=== PATIENT | female | born 1965 | race African-American/Black ===

== ENCOUNTER 2017-09-24 14:37 | Inpatient (IN) | payer MEDICAID ==
[~2017-09-24] VITALS: Ht 170.2 cm; Wt 61.2 kg
[~2017-09-24 14:37] MED LIST: NKM; PERCOCET 5-3251 EACH ORAL
[2017-09-24 15:00] VITALS: BP 140/91
[2017-09-24] MEDS ORDERED: Nitroglycerin 2% oint pkt TOPIC ONE (15:15)
--- NOTE | 2017-09-24 15:17 | Emergency Room Report ---
History of Present Illness General Chief Complaint: Generalized Weakness Source: Patient Present Illness HPI The patient presents with worsening exertional chest pain. She's also under stress at this time. She states it's pressure radiating to her left arm. It's worsened when she's walking and improved when she is at rest. She took B and C powder which has aspirin in it today and is slightly better at this time. She denies diaphoresis nausea or vomiting. She also has crapping in her legs. She states she has risk factors of family history of heart disease, she smokes and has hypertension. She is being followed by a key account representative but has never had a treadmill or other evaluation for acute coronary syndrome. She denies fevers, chills, productive cough, change in bowels, dysuria or headache. Allergies: Coded Allergies: No Known Allergies (Verified Allergy, Unknown, 07/14/07) Patient History Past Medical History: see triage record Social History: Reports: smoking Social History Narrative at home Last Menstrual Period: na Reviewed Nursing Documentation: PMH: Agreed; PSxH: Agreed Nursing Documentation-PMH Past Medical History: No History, Except For Hx Hypertension: Yes Review of Systems All Other Systems: negative except mentioned in HPI Physical Exam Vital Signs Date Time Temp Pulse Resp B/P (MAP) Pulse Ox O2 Delivery O2 Flow Rate FiO2 09/24/17 14:45 98.9 100 18 140/91 98 Room Air 99.0 Sp02 EP Interpretation: reviewed, normal General Appearance: well appearing, no apparent distress, GCS 15 Head: normocephalic Eyes: bilateral eye normal inspection, bilateral eye PERRL ENT: moist mucus membranes Neck: supple Respiratory: lungs clear, normal breath sounds Cardiovascular #1: regular rate, rhythm, no edema Cardiovascular #2: 2+ radial (R) Gastrointestinal: normal inspection, normal bowel sounds, non tender, no mass, non-distended, scaphoid Musculoskeletal: back normal, gait/station normal, normal range of motion, no calf tenderness Neurologic: alert, oriented x3, grossly normal Psychiatric: mood/affect normal Skin: normal inspection, warm/dry Medical Decision Making Diagnostic Impression: Primary Impression: Chest pain Qualified Codes: R07.9 - Chest pain, unspecified ER Course The patient presents with exertional chest pain. She has cardiac risk factors. Differential includes acute myocardial infarction, unstable angina, angina, acute coronary syndrome, costochondritis, anxiety amongst others. She needs to be evaluated with EKG, chest x-ray and labs including troponin. She took aspirin already today and we will be giving her nitro bid. EKG without injury. Chest x-ray unremarkable. Labs with negative troponin. Patient is improved with nitro-bid. Pain is now 4/10. The patient is admitted to telemetry for repeated troponins and cardiac evaluation. Laboratory Tests Test 09/24/17 15:20 09/24/17 15:30 Urine Color Pale yellow Urine Appearance Slightly cloudy Urine pH 5 (4.5-8.0) Urine Specific [place] 1.005 (1.005-1.035) Urine Protein Negative (NEGATIVE) Urine Glucose (UA) Negative (NEGATIVE) Urine Ketones Negative (NEGATIVE) Urine Occult Blood Negative (NEGATIVE) Urine Nitrite Negative (NEGATIVE) Urine Bilirubin Negative (NEGATIVE) Urine Urobilinogen Normal MG/DL (0.0-1.0) Urine Leukocyte Esterase Negative (NEGATIVE) Urine RBC 0 /HPF (0 - 2) Urine WBC 0-2 /HPF (0 - 2) Urine Squamous Epithelial Cells Moderate /LPF (NONE/OCC) H Urine Bacteria Occasional /HPF (NONE) Urine Opiates Screen Negative (NEGATIVE) Urine Barbiturates Screen Negative (NEGATIVE) Phencyclidine (PCP) Screen Negative (NEGATIVE) Urine Amphetamines Screen Negative (NEGATIVE) Urine Benzodiazepines Screen Negative (NEGATIVE) Urine Cocaine Screen Negative (NEGATIVE) Urine Marijuana (THC) Screen Negative (NEGATIVE) White Blood Count 8.7 K/UL (4.8-10.8) Red Blood Count 4.04 M/UL (4.20-5.40) L Hemoglobin 11.3 G/DL (12.0-16.0) L Hematocrit 34.4 % (37.0-47.0) L Mean Corpuscular Volume 85 FL (80-99) Mean Corpuscular Hemoglobin 28.0 PG (27.0-31.0) Mean Corpuscular Hemoglobin Concent 32.9 G/DL (32.0-36.0) Red Cell Distribution Width 14.6 % (11.6-14.8) Platelet Count 268 K/UL (150-450) Mean Platelet Volume 6.6 FL (6.5-10.1) Neutrophils (%) (Auto) 50.7 % (45.0-75.0) Lymphocytes (%) (Auto) 36.9 % (20.0-45.0) Monocytes (%) (Auto) 9.6 % (1.0-10.0) Eosinophils (%) (Auto) 0.8 % (0.0-3.0) Basophils (%) (Auto) 1.9 % (0.0-2.0) Prothrombin Time 10.4 SEC (9.30-11.50) Prothrombin Time INR 1.0 (0.9-1.1) PTT 26 SEC (23-33) Sodium Level 137 MMOL/L (136-145) Potassium Level 4.2 MMOL/L (3.5-5.1) Chloride Level 102 MMOL/L (98-107) Carbon Dioxide Level 21 MMOL/L (21-32) Anion Gap 14 mmol/L (5-15) Blood Urea Nitrogen 5 mg/dL (7-18) L Creatinine 0.6 MG/DL (0.55-1.30) Estimate Glomerular Filtration Rate > 60 mL/min (>60) Glucose Level 91 MG/DL (74-106) Calcium Level 9.2 MG/DL (8.5-10.1) Total Bilirubin 0.2 MG/DL (0.2-1.0) Aspartate Amino Transferase (AST) 69 U/L (15-37) H Alanine Aminotransferase (ALT) 43 U/L (12-78) Alkaline Phosphatase 65 U/L (46-116) Total Creatine Kinase 153 U/L (26-308) Troponin I 0.001 ng/mL (0.000-0.056) Pro-B-Type Natriuretic Peptide 52 pg/mL (0-125) Total Protein 8.2 G/DL (6.4-8.2) Albumin 3.6 G/DL (3.4-5.0) Globulin 4.6 g/dL Albumin/Globulin Ratio 0.8 (1.0-2.7) L EKG Diagnostic Results Rate: normal Rhythm: NSR ST Segments: no acute changes Rhythm Strip Diag. Results EP Interpretation: yes Rhythm: NSR, no PVC's, no ectopy Chest X-Ray Diagnostic Results Chest X-Ray Diagnostic Results : Chest X-Ray Ordered: Yes # of Views/Limited/Complete: 1 View Indication: Chest Pain EP Interpretation: Yes Interpretation: no consolidation, no effusion, no pneumothorax, other - globular heart Electronically Signed by: Electronically signed by Efren Ron MD Status: improved Disposition: ADMITTED INPATIENT Condition: Serious Efren Ron M.D. Sep 24, 2017 15:17
[2017-09-24 15:47] LABS: APPEARANCE,URINE SLIGHTLY CLOUDY; BILIRUBIN, URINE NEGATIVE (NEGATIVE); COLOR,URINE PALE YELLOW; GLUCOSE, URINE (UA) NEGATIVE (NEGATIVE); KETONES,URINE NEGATIVE (NEGATIVE); LEUKOCYTE ESTERASE ,URINE NEGATIVE (NEGATIVE); NITRITE,URINE NEGATIVE (NEGATIVE); PH,URINE 5 (4.5-8.0); PROTEIN,URINE NEGATIVE (NEGATIVE); UROBILINOGEN,URINE NORMAL MG/DL (0.0-1.0)
[2017-09-24 15:53] VITALS: BP 130/81
[2017-09-24 16:03] LABS: BASOPHILS % (AUTO) 1.9 % (0.0-2.0); EOSINOPHILS % (AUTO) 0.8 % (0.0-3.0); HEMATOCRIT 34.4 % (37.0-47.0); HEMOGLOBIN 11.3 G/DL (12.0-16.0); LYMPHOCYTES % (AUTO) 36.9 % (20.0-45.0); MEAN CORPUSCULAR VOLUME 85 FL (80-99); MONOCYTES % (AUTO) 9.6 % (1.0-10.0); NEUTROPHILS % (AUTO) 50.7 % (45.0-75.0); PLATELET COUNT 268 K/UL (150-450); RED BLOOD COUNT 4.04 M/UL (4.20-5.40); RED CELL DISTRIBUTION WIDTH 14.6 % (11.6-14.8); WHITE BLOOD COUNT 8.7 K/UL (4.8-10.8)
[2017-09-24 16:18] LABS: ANION GAP 14 mmol/L (5-15); BLOOD UREA NITROGEN 5 mg/dL (7-18); CALCIUM 9.2 MG/DL (8.5-10.1); CARBON DIOXIDE 21 MMOL/L (21-32); CHLORIDE 102 MMOL/L (98-107); CREATININE 0.6 MG/DL (0.55-1.30); POTASSIUM 4.2 MMOL/L (3.5-5.1); SODIUM 137 MMOL/L (136-145)
[2017-09-24 16:28] LABS: ALANINE AMINOTRANSFERASE 43 U/L (12-78); ALBUMIN 3.6 G/DL (3.4-5.0); ALBUMIN/GLOBULIN RATIO 0.8 (1.0-2.7); ALKALINE PHOSPHATASE 65 U/L (46-116); ASPARTATE AMINO TRANSFERASE 69 U/L (15-37); BILIRUBIN,TOTAL 0.2 MG/DL (0.2-1.0); CREATINE KINASE 153 U/L (26-308)
[2017-09-24 16:53] VITALS: BP 107/69
[2017-09-24] MEDS ORDERED: NKM (17:12)
[2017-09-24 18:00] VITALS: BP 132/88
[2017-09-24] MEDS ORDERED: Nitroglycerin Subl 0.4mg tab SL PRN (18:00)
[2017-09-24] MEDS ORDERED: BC POWDER PACK1 EAC1 PO (18:38)
[2017-09-24] MEDS ORDERED: ARTIFICIAL TEAR15 ML BOTH EYES (18:38)
--- NOTE | 2017-09-24 19:45 | History and Physical Report ---
DATE OF ADMISSION: 09/24/2017 CHIEF COMPLAINT: Chest pain. HISTORY OF PRESENT ILLNESS: The patient is a pleasant female. She has history of hypertensive heart disease. She has been off medications for several months. She presented here with complaints of chest pain that was exertional. She describes pain as pressure-like usually associated with exercise, stress, exertion. It is resolved with rest. She denies any nonexertional chest pain or chest pain at rest. On evaluation in emergency room, the troponin was negative. EKG was unremarkable. In light of her significant history, she was admitted for further evaluation and care. She does have a family history father of a heart attack in his mid 50s. She is a smoker. PAST MEDICAL HISTORY: As above. PAST SURGICAL HISTORY: None. CURRENT MEDICATIONS: None. FAMILY HISTORY: Significant for heart disease. SOCIAL HISTORY: Negative for alcohol or drugs. The patient is a prior smoker, but quit. REVIEW OF SYSTEMS: Negative except for chest pain. PHYSICAL EXAMINATION: VITAL SIGNS: Temperature 99, pulse 91, respiratory rate 18, blood pressure 107/69. GENERAL: The patient is well-developed and well-nourished female, in no apparent distress. HEART: Regular rate and rhythm. LUNGS: Clear. ABDOMEN: Soft, nontender, and nondistended. EXTREMITIES: No clubbing, cyanosis, or edema. LABORATORY DATA: White count 8, hemoglobin 11, hematocrit 34. Sodium 137. Troponin is 0.001. Coags negative Urine was clear. Tox screen was negative. ASSESSMENT: This is a pleasant female admitted with complaints atypical angina: 1. Angina. 2. Hypertension. PLAN: Serial enzymes and EKGs. Check troponin in the morning. Check lipid panel and thyroid function tests. Stress test in the morning. Antiplatelet therapy. As needed nitrates. Jefe Yoder M.D. DR: Naz JOB#: [id number] CC:
[2017-09-24 20:00] VITALS: BP 117/74
[2017-09-24] MEDS: Heparin 5000 units/ml inj SUBQ SCH (21:00)
[2017-09-25] VITALS: BP 122/68
[2017-09-25 04:00] VITALS: BP 111/79
[2017-09-25 08:00] VITALS: BP 116/73
[2017-09-25] MEDS: Heparin 5000 units/ml inj SUBQ SCH (08:10)
[2017-09-25 09:34] LABS: CHOLESTEROL 181 MG/DL (< 200); HDL CHOLESTEROL 47 MG/DL (40-60); TRIGLYCERIDES 61 MG/DL (30-150)
[2017-09-25 12:00] VITALS: BP 120/79
--- NOTE | 2017-09-25 12:02 | Diagnostic Imaging Report ---
Indication: Chest pain Technique: One view of the chest Comparison: 07/15/2007 Findings: Lungs and pleural spaces are clear. Heart size upper limits of normal. The aorta is elongated. Impression: No acute process
--- NOTE | 2017-09-25 13:33 | Cardiology Report ---
APPROVED REPORT EKG Measurement Heart [id number] ME [id number] [id number] Normal sinus rhythm Left axis deviation Abnormal ECG
--- NOTE | 2017-09-25 15:58 | Diagnostic Imaging Report ---
Indications: Chest pain Technique: Single day single isotope protocol utilized. Initially, resting images obtained using IV administration 10.5 millicuries 99M technetium Myoview. Subsequently, patient underwent treadmill stress testing. See cardiology report for details. During adenosine infusion, IV administration 31.9 mCi 99 M technetium Myoview. SPECT and planar images obtained. SPECT images gated to 8 phases of the cardiac cycle were also obtained, and reformatted into cine images for evaluation of ejection fraction. Comparison: none Findings: Per cardiology report, patient experienced fatigue. Patient achieved a peak heart rate of 142 bpm, equaling the targeted heart rate of 142 bpm. Per cardiology report, resting EKG demonstrates normal sinus rhythm. Presence of absence of EKG changes during stress is not recorded on the available cardiology report. Imaging demonstrates equivocal slight decreased activity in the apex which is unchanged on the resting images. No reversible post stress perfusion defects. Normal cardiac chamber size. Calculated post stress ejection fraction 76%. No focal wall motion abnormality Impression: Nonischemic clinical response to pharmacologic stress, per cardiology report Nonischemic electrocardiographic response to pharmacologic stress, per cardiology report No imaging findings to suggest ischemia, at level of stress achieved. Slight fixed decreased activity in the apex could represent a small infarct, but is most likely artifactual due to overlying soft tissue attenuation Calculated post stress ejection fraction 76%
[2017-09-25 16:00] VITALS: BP 135/78
--- NOTE | 2017-09-25 18:15 | Cardiology Report ---
APPROVED REPORT EXAM: Two-dimensional and M-mode echocardiogram with Doppler and color Doppler. INDICATION Angina pectoris M-Mode DIMENSIONS IVSd1.7 (0.7-1.1cm)Left Atrium (MM)3.6 (1.6-4.0cm) LVDd4.9 (3.5-5.6cm)Aortic Root3.5 (2.0-3.7cm) PWd1.2 (0.7-1.1cm)Aortic Cusp Exc.1.8 (1.5-2.0cm) LVDs3.3 (2.5-4.0cm) PWs1.2 cm Technically difficult study due to poor apical windows. Normal left ventricular chamber size, systolic function and wall motion to extent visualized. Left ventricular ejection fraction estimated to be 60 %. Study quality precludes accurate assessment of regional wall motion. No evidence of left ventricular hypertrophy by 2-D. No evidence of pericardial effusion. All other cardiac chamber sizes are within normal limits. Mild focal aortic valve sclerosis with adequate cusp excursion. Mildly thickened mitral valve leaflets with normal excursion. Mitral annulus and aortic root calcification. Pulmonic valve not well visualized. Normal tricuspid valve structure. IVC at normal size with physiologic collapse. A color flow and spectral Doppler study was performed and revealed: No aortic regurgitation. No mitral regurgitation. Mitral inflow indicates normal left ventricular diastolic function. Trace tricuspid regurgitation. Tricuspid systolic velocities suggests peak right ventricular systolic pressure of 10 mmHg. No pulmonic regurgitation present.
--- NOTE | 2017-09-27 09:17 | Discharge Summary ---
Discharge Summary Discharge Summary _ DATE OF ADMISSION: 09/24/2017 DATE OF DISCHARGE: 09/25/2017 REASON FOR ADMISSION: 51 years old female with past medical history significant for hypertension, presented to emergency department with complaint of chest pain. She reported chest pain to be pressure-like, associated with stress ,exercise and resolved with rest. Patient had been off anti-hypertensive medications for several months. Upon evaluation blood pressure was slightly elevated 140/91. Troponin was negative. EKG revealed normal sinus rhythm, no acute ischemic changes. Chest x-ray revealed no acute cardiopulmonary pathology. Patient had family history of father , who of heart attack at the mid 50s. Patient was a current smoker. Due to the risk factors, patient admitted for workup for chest pain to rule out acute coronary syndrome HOSPITAL COURSE: Patient admitted to telemetry floor. Serial troponin were negative. EKG revealed no acute ischemic changes. Patient subsequently ruled out for acute IL. Echocardiogram revealed preserved ejection fraction of 60%. No evidence of pericardial effusion. Right ventricular systolic pressure of 10. No mitral regurgitation. Patient subsequently undergone nuclear medicine stress test which was nonischemic. No imaging findings to suggest ischemia level af stress achieved. Calculated poststress ejection fraction 76%. Lipid panel revealed elevated LDL- 122, stable triglycerides and total cholesterol. Patient was educated on therapeutic lifestyle changes and advised to repeat lipid panel in 3 months. If LDL still elevated, recommended to start statin- per PMD discretion. TSH was within normal limits. Pro BNP 52. Patient was on antiplatelet therapy with aspirin. Nitroglycerin provided as needed. Pain resolved. DVT prophylaxis provided .Blood pressure stabilized. At this point no need for antihypertensive medication, however patient was urged to follow-up with the primary care provider to closely monitor blood pressure. She was counseled on smoking cessation. Patient was stable for discharge. Due to rapid and expected improvement in patient condition, patient was discharged in one day. FINAL DIAGNOSES: Angina Hypertension DISCHARGE MEDICATIONS: See Medication Reconciliation list. DISCHARGE INSTRUCTIONS: Patient was discharged home. Follow up with primary care provider in one week. I have been assigned to dictate discharge summary for this account. I was not involved in the patient's management. Domi Ramires NP Sep 27, 2017 09:17
== END 2017-09-25 17:13 | disposition home or self-care (01) | DRG 198 ==
LOC: EMR 16:45 → 2E 17:00 → EDBEDREQ 17:04
DX: I20.9 Angina pectoris, unspecified (principal); I11.9 Hypertensive heart disease without heart failure; F17.200 Nicotine dependence, unspecified, uncomplicated; Z82.49 Family history of ischemic heart disease and other diseases of the circulatory system
CPT/HCPCS: 36415; 71045; 78452; 80053; 80061; 80307; 81003; 82550; 83880; 84443; 84484; 85025; 85610; 85730; 93005; 93017; 93306; 99285

== ENCOUNTER 2018-08-26 18:00 | Emergency (ER) | payer MEDICAID ==
[~2018-08-26] VITALS: Ht 170.2 cm; Wt 60.3 kg
[~2018-08-26 18:00] MED LIST changes: +ARTIFICIAL TEAR15 ML BOTH EYES; +BC POWDER PACK1 EAC1 PO
--- NOTE | 2018-08-26 18:16 | NUR ---
ED Nurse Note: Patient came in from home ambulatory with c/o plugged ear on the Left ear about a month ago , draining sinuses and right facial discomfort due to dental problem for about a year now since 2017. VSS. GAUTHIER seen and examined the patient. WIll continue to monitor.
--- NOTE | 2018-08-26 18:27 | NUR ---
ED Nurse Note: Urine collected and sent to lab.
[2018-08-26 18:33] VITALS: BP 127/69
[2018-08-26 18:44] LABS: APPEARANCE,URINE CLEAR; BILIRUBIN, URINE NEGATIVE (NEGATIVE); COLOR,URINE PALE YELLOW; GLUCOSE, URINE (UA) NEGATIVE (NEGATIVE); KETONES,URINE NEGATIVE (NEGATIVE); LEUKOCYTE ESTERASE ,URINE NEGATIVE (NEGATIVE); NITRITE,URINE NEGATIVE (NEGATIVE); PH,URINE 5 (4.5-8.0); PROTEIN,URINE NEGATIVE (NEGATIVE); UROBILINOGEN,URINE NORMAL MG/DL (0.0-1.0)
--- NOTE | 2018-08-26 18:44 | NUR ---
ED Nurse Note: Pt refused CAT scan, ERMD aware and discontinued the order.
[2018-08-26] MEDS ORDERED: ACETAMINOPHEN-1 EAC1 ORAL (18:57)
[2018-08-26] MEDS ORDERED: AUGMENTIN 875-1 EAC1 ORAL (18:57)
[2018-08-26 19:14] VITALS: BP 111/74
--- NOTE | 2018-08-26 19:15 | NUR ---
ER DISCHARGE NOTE: Patient is cleared to be discharged per ERMD, pt is aox4, on room air, with stable vital signs. pt was given dc and prescription instructions, pt was able to verbalize understanding, pt id band and iv site removed without complications. pt is able to ambulate with steady gait. pt took all belongings. VSS. Drainage on left ear done. No acute distress.
[2018-08-26 19:22] VITALS: BP 111/74
--- NOTE | 2018-08-26 22:32 | Emergency Room Report ---
History of Present Illness General Chief Complaint: Headache Present Illness HPI Patient is a 52-year-old female who presented after increased headache and congestion. Patient reports of increased right-sided facial pain. Patient reports having previous procedure to her right side of her face. Patient had no loss of consciousness. Patient had gradual onset of symptoms. She had previously been told that she needed dental extraction to the right side of her face. She denies any fever. She had previous abscess drainage. Allergies: Coded Allergies: No Known Allergies (Verified Allergy, Unknown, 07/14/07) Patient History Past Medical History: see triage record Last Menstrual Period: menopause Now: No Reviewed Nursing Documentation: PMH: Agreed; PSxH: Agreed Nursing Documentation-PMH Hx Hypertension: Yes Review of Systems All Other Systems: negative except mentioned in HPI Physical Exam Vital Signs Date Time Temp Pulse Resp B/P (MAP) Pulse Ox O2 Delivery O2 Flow Rate FiO2 08/26/18 18:06 98.2 89 16 95 Room Air 08/26/18 18:33 127/69 Sp02 EP Interpretation: reviewed, normal General Appearance: normal inspection, well appearing, no apparent distress, alert, GCS 15 Head: atraumatic ENT: normal ENT inspection, hearing grossly normal, normal voice, other - poor dentition Neck: normal inspection, full range of motion, supple, no bony tend Respiratory: normal inspection, lungs clear, normal breath sounds, no respiratory distress, no retraction, no wheezing Cardiovascular #1: regular rate, rhythm, no edema Gastrointestinal: normal inspection, normal bowel sounds, non tender, soft, no guarding, no hernia Genitourinary: no CVA tenderness Musculoskeletal: normal inspection, back normal, normal range of motion Neurologic: normal inspection, alert, responsive, speech normal Psychiatric: normal inspection, judgement/insight normal, mood/affect normal Skin: normal inspection, normal color, no rash Medical Decision Making Diagnostic Impression: Primary Impression: Chronic dental infection Additional Impression: Impacted cerumen of left ear ER Course She presented for dental pain and headache. Differential diagnosis include was not limited to meningitis, dental fracture abscess among others. CT imaging was the head was ordered to patient's severe headache. CT head read by radiology showed no evidence of acute intracranial hemorrhage or sinus infection. Patient was noted to have some dental disease. patient appears stable for outpatient management. She was given prescription for oral antibiotics. She was advised to follow-up with dentist for further evaluation and treatment. Labs Test 08/26/18 18:22 Urine Color Pale yellow Urine Appearance Clear Urine pH 5 (4.5-8.0) Urine Specific [place] 1.010 (1.005-1.035) Urine Protein Negative (NEGATIVE) Urine Glucose (UA) Negative (NEGATIVE) Urine Ketones Negative (NEGATIVE) Urine Blood Negative (NEGATIVE) Urine Nitrite Negative (NEGATIVE) Urine Bilirubin Negative (NEGATIVE) Urine Urobilinogen Normal MG/DL (0.0-1.0) Urine Leukocyte Esterase Negative (NEGATIVE) Last Vital Signs Date Time Temp Pulse Resp B/P (MAP) Pulse Ox O2 Delivery O2 Flow Rate FiO2 08/26/18 19:22 97.2 68 16 111/74 96 08/26/18 19:14 Room Air Status: improved Disposition: HOME, SELF-CARE Condition: Improved Scripts Amoxicillin/Potassium Clav 875-125* (AUGMENTIN 875-125 TABLET*) 1 Each Tablet 1 TAB ORAL TWICE A DAY, #28 TAB Prov: Bernard Verdin MD 08/26/18 Acetaminophen With Codeine (T#3) (TYLENOL #3 TAB*) Y Tab 1 TAB ORAL Q6HR PRN for For Pain, #16 TAB Prov: Bernard Verdin MD 08/26/18 Referrals: NOT CHOSEN [facility]/,REFERRING (PCP) Patient Instructions: [facility] Bernard Verdin MD August 26, 2018 22:32
== END 2018-08-26 19:30 | disposition home or self-care (01) ==
LOC: EMR 19:14
DX: K04.7 Periapical abscess without sinus (principal); H61.22 Impacted cerumen, left ear; I10 Essential (primary) hypertension
CPT/HCPCS: 81003; 99282

== ENCOUNTER 2019-02-19 11:11 | Emergency (ER) | payer SELFPAY ==
[~2019-02-19] VITALS: Ht 170.2 cm; Wt 61.2 kg
[~2019-02-19 11:11] MED LIST changes: +ACETAMINOPHEN-1 EAC1 ORAL; +AUGMENTIN 875-1 EAC1 ORAL
[2019-02-19] MEDS ORDERED: BP med (11:21)
[2019-02-19 11:32] VITALS: BP 104/70
--- NOTE | 2019-02-19 11:34 | NUR ---
ED Nurse Note: ERMD at bedside for assessment.
--- NOTE | 2019-02-19 11:35 | NUR ---
ED Nurse Note: Pt walked into ER c/o left lung pain 01/24 upon exertion. Pt aao x4. No acute distress noted. Patient ambulatory. Addendum: 02/19/19 at 1142 by IOROPEL ED Nurse Note: Lung sounds auscultated bilaterally, all lobes clear and no wheezing noted.
--- NOTE | 2019-02-19 11:52 | NUR ---
ED Nurse Note: X-ray at bedside.
[2019-02-19] MEDS ORDERED: MEDROL DOSEPAK4 MG ORAL (12:05)
--- NOTE | 2019-02-19 12:19 | NUR ---
ED Nurse Note: pt requested to speak to the doctor before she leaves. pt curing at nurses for not given pt the prescription for pain medication. security paged. ABRAHAN made aware.
--- NOTE | 2019-02-19 12:20 | NUR ---
ED Nurse Note: Pt was given discharge instructions and requested for two additional medications that were not in discharge paperwork, MD notified by Francis Lewis RN. Pt became verbally aggressive to Francis Lewis RN and security was called. Pt refused to leave ER and was escorted by security to sit on fast track chair in ED. Pt refused to sign discharge paperwork.
[2019-02-19] MEDS ORDERED: MEGESTROL ACETA20 MG ORAL (12:33)
--- NOTE | 2019-02-19 12:34 | NUR ---
ED Nurse Note: Patient cleared by MD for discharge. Patient signed discharge instructions and verbalized understanding. Patient was given prescriptions. Patient aao x 4 stable and ambulatory upon discharge.
[2019-02-19 12:35] VITALS: BP 110/85
--- NOTE | 2019-02-19 13:36 | Diagnostic Imaging Report ---
Indication: Cough Technique: One view of the chest Comparison: none Findings: No acute infiltrates, effusions, or congestion. Tortuous calcified aorta. Normal heart size. Upper mediastinum unremarkable. No significant interim change Impression: No acute process.
--- NOTE | 2019-02-19 13:46 | Emergency Room Report ---
History of Present Illness General Chief Complaint: Upper Respiratory Illness Source: Patient Present Illness HPI Patient presents with complaints of cough ongoing for the past several days describes being out in the cold patient also has some phlegm production Increased nasal congestion Denies any headache denies any vomiting or diarrhea Patient denies any blood in the sputum no obvious documented fevers Denies any neck pain or photophobia Allergies: Coded Allergies: No Known Allergies (Verified Allergy, Unknown, 07/14/07) Patient History Past Medical History: see triage record Reviewed Nursing Documentation: PMH: Agreed; PSxH: Agreed Nursing Documentation-PMH Past Medical History: No History, Except For Hx Hypertension: Yes Review of Systems All Other Systems: negative except mentioned in HPI Physical Exam Vital Signs Date Time Temp Pulse Resp B/P (MAP) Pulse Ox O2 Delivery O2 Flow Rate FiO2 02/19/19 11:15 98.4 89 18 118/70 (86) 99 Room Air Sp02 EP Interpretation: reviewed, normal General Appearance: well appearing, no apparent distress Head: normocephalic, atraumatic Eyes: bilateral eye PERRL, bilateral eye EOMI ENT: hearing grossly normal, normal pharynx, TMs + canals normal, uvula midline Neck: full range of motion, supple, no meningismus, no bony tend Respiratory: lungs clear, normal breath sounds, no rhonchi, no respiratory distress, no retraction, no accessory muscle use Cardiovascular #1: normal peripheral pulses, regular rate, rhythm, no edema, no gallop, no JVD, no murmur Gastrointestinal: normal bowel sounds, non tender, soft, no mass, no organomegaly, non-distended, no guarding, no hernia, no pulsatile mass, no rebound Genitourinary: no CVA tenderness Musculoskeletal: normal inspection Neurologic: oriented x3, responsive, post acute care nurse practitioner III-XII nml as tested, motor strength/ tone normal, sensory intact Psychiatric: mood/affect normal Skin: no rash Lymphatic: normal inspection, no adenopathy Medical Decision Making Diagnostic Impression: Primary Impression: Upper respiratory infection ER Course Multiple differentials including but not limited to pneumonia, other vascular and cardiac emergencies entertained Patient's x-ray does not show any acute disease Findings and evaluation appears to be consistent with likely URI and patient stable for close outpatient follow-up Chest X-Ray Diagnostic Results Chest X-Ray Diagnostic Results : Chest X-Ray Ordered: Yes # of Views/Limited/Complete: 1 View Indication: Other - cough EP Interpretation: Yes Interpretation: no consolidation, no effusion, no pneumothorax Impression: No acute disease Electronically Signed by: Gina Pritchard DO Last Vital Signs Date Time Temp Pulse Resp B/P (MAP) Pulse Ox O2 Delivery O2 Flow Rate FiO2 02/19/19 12:35 97.3 87 17 110/85 98 Room Air Status: improved Disposition: HOME, SELF-CARE Condition: Improved Scripts Megestrol Acetate (Megestrol Acetate) 20 Mg Tablet 20 MG ORAL DAILY, #20 TAB 0 Refills Prov: Gina Pritchard DO 02/19/19 Methylprednisolone (Methylprednisolone*) 4MG Dspk 4 MG ORAL DIRECTED for 6 Days, #21 EA 0 Refills Day 1: Two tablets before breakfast, one after lunch, one after dinner, and two at bedtime. If started late in the day, take all six tablets at once or divide into two or three doses, unless otherwise directed by prescriber. Day 2: One tablet before breakfast, one after lunch, one after dinner, and two at bedtime Day 3: One tablet before breakfast, one after lunch, one after dinner, and one at bedtime Day 4: One tablet before breakfast, one after lunch, and one at bedtime Day 5: One tablet before breakfast and one at bedtime Day 6: One tablet before breakfast Prov: Gina Pritchard DO 02/19/19 Referrals: NOT CHOSEN IPA/MD,REFERRING (PCP) Patient Instructions: Upper Respiratory Infection, Adult Additional Instructions: Patient is provided with the discharge instructions notified to follow up with primary doctor in the next 2-3 days otherwise return to the er with any worsening symptoms. Please note that this report is being documented using [employer] technology. This can lead to erroneous entry secondary to incorrect interpretation by the dictating instrument. Gina Pritchard DO Feb 19, 2019 13:46
== END 2019-02-19 12:34 | disposition home or self-care (01) ==
LOC: EMR 12:10
DX: J06.9 Acute upper respiratory infection, unspecified (principal); I10 Essential (primary) hypertension
CPT/HCPCS: 71045; 99283

== ENCOUNTER → 2019-02-21 | Emergency (ER) | payer SELFPAY ==
[~2019-02-21] MED LIST changes: +BP med; +MEDROL DOSEPAK4 MG ORAL; +MEGESTROL ACETA20 MG ORAL
== END | disposition left against medical advice (07) ==
LOC: EMR 14:40
DX: Z53.21 Procedure and treatment not carried out due to patient leaving prior to being seen by health care provider (principal)

== ENCOUNTER 2019-09-13 09:55 | Emergency (ER) | payer SELFPAY ==
[~2019-09-13] VITALS: Ht 170.2 cm; Wt 15.9 kg
[2019-09-13] MEDS ORDERED: MEGESTROL ACETA20 M1 PO (10:21)
[2019-09-13] MEDS ORDERED: NORVASC5 MG ORAL (10:21)
[2019-09-13] MEDS ORDERED: ZYRTEC10 MG ORAL (10:21)
--- NOTE | 2019-09-13 10:22 | Emergency Room Report ---
History of Present Illness General Chief Complaint: Earache Source: Patient Present Illness HPI 53-year-old female presents with right ear clogging x2 weeks no aggravating relieving factors severity is mild, constant no fevers chills chest pain shortness of breath. Patient reports she also want refills on medication and the megestrol as well as a hypertensive medication Allergies: Coded Allergies: No Known Allergies (Verified Allergy, Unknown, 07/14/07) COVID-19 Screening Contact w/high risk pt: No Recent Travel to affected area: No Experienced COVID-19 symptoms?: No COVID-19 Testing performed RESEARCH ANALYST: No Patient History Past Medical History: see triage record Reviewed Nursing Documentation: PMH: Agreed; PSxH: Agreed Nursing Documentation-PMH Past Medical History: No History, Except For Hx Hypertension: Yes Review of Systems All Other Systems: negative except mentioned in HPI Physical Exam Vital Signs Date Time Temp Pulse Resp B/P (MAP) Pulse Ox O2 Delivery O2 Flow Rate FiO2 09/13/19 10:05 98.4 102 15 142/74 (96) 98 Room Air General Appearance: well appearing, no apparent distress Head: normocephalic, atraumatic Eyes: bilateral eye PERRL, bilateral eye EOMI ENT: hearing grossly normal, normal voice, TMs + canals normal Neck: full range of motion, supple Respiratory: no respiratory distress, speaking full sentences Neurologic: alert, normal gait Psychiatric: mood/affect normal Skin: no rash Medical Decision Making Diagnostic Impression: Primary Impression: Earache symptoms Qualified Codes: H92.03 - Otalgia, bilateral Additional Impression: Encounter for medication refill ER Course 53-year-old female presents requesting medication refills as well as suctioning of her bilateral ears. No evidence of obstructive earwax however patient is adamant and wants suctioning of her bilateral ears. Will suction them additionally will provide her medication refills on antihypertensive medications and megestrol. Strict return precautions discussed follow-up with PCP Last Vital Signs Date Time Temp Pulse Resp B/P (MAP) Pulse Ox O2 Delivery O2 Flow Rate FiO2 09/13/19 10:05 98.4 102 15 142/74 (96) 98 Room Air Disposition: HOME, SELF-CARE Condition: Stable Scripts Cetirizine Hcl* (ZYRTEC*) 10 Mg Tablet 10 MG ORAL DAILY, #30 TAB 0 Refills Prov: Jorje Walton MD 09/13/19 Amlodipine Besylate (Norvasc) 5 Mg Tablet 5 MG ORAL DAILY, #30 TAB Prov: Jorje Walton MD 09/13/19 Megestrol Acetate (MEGESTROL ACETATE) 20 Mg Tablet 20 MG PO DAILY, #30 TAB Prov: Jorje Walton MD 09/13/19 Referrals: NOT CHOSEN IPA/,REFERRING (PCP) [facility]. [facility] Patient Instructions: Earache Additional Instructions: The patient was provided with discharge instructions, notified to follow-up with a primary care doctor and or specialist in the next 24-48 hours, and to return to the ED if they have worsening of their symptoms. Please note that this report is being documented using [employer] technology. This can lead to erroneous entry secondary to incorrect interpretation by the dictating instrument. Jorje Walton MD September 13, 2019 10:21
--- NOTE | 2019-09-13 10:40 | NUR ---
ED Nurse Note: Pt cleared by health care Provider for discharge. DC instructions/prescription was given and explained to pt and verbalized understanding of teachings. All medical deviecs such as ID band removed. Pt is AAO x4, ambulatory and left with all personal belongings.
[2019-09-13 14:17] VITALS: BP 142/74
== END 2019-09-13 10:40 | disposition home or self-care (01) ==
LOC: EMR 10:08
DX: H92.03 Otalgia, bilateral (principal); Z76.0 Encounter for issue of repeat prescription; I10 Essential (primary) hypertension; Z79.899 Other long term (current) drug therapy
CPT/HCPCS: 99282